=== PATIENT | male | born 1985 | race Caucasian/White ===

== ENCOUNTER 2017-07-05 12:45 | Day surgery (SDC) | payer OTHER ==
[~2017-07-05] VITALS: Ht 185.4 cm; Wt 111.1 kg
[~2017-07-05 12:45] MED LIST: ALPHA LIPOIC A300 MG PO; CIPRO500 MG PO; FLAGYL500 MG PO; LACTULOSE10 GM/15 M PO; NAPROSYN500 MG PO; NORCO 5-325 TA1 EACH PO; PROBIOTIC1 EAC1 PO
--- NOTE | 2017-07-05 13:52 | NUR ---
07/05/17 1352 Mattie Menjivar 1349 - PT ARRIVED TO PACU. MAINTAINING OWN AIRWAY. REPSONDING APPROPRIATLY TO QUESTIONS. OFFICERS PRESENT AT BEDSIDE.
--- NOTE | 2017-07-06 10:03 | OR ---
[facility] [address], [place] [address] Signed DATE OF OPERATION: 07/05/2017 SURGEON: Antonio Blancas MD PREOPERATIVE DIAGNOSIS: Episode of left lower abdominal pain clinically consistent with diverticulitis; CT scan unlikely for diverticular change. POSTOPERATIVE DIAGNOSES: 1. No evidence of diverticulosis of the sigmoid. 2. Sessile polyp of the right colon (1 cm) excised. PROCEDURE: Total colonoscopy to cecum with cold morcellation polypectomy x1. ANESTHESIA: Intravenous sedation, fentanyl 150 mcg, Versed 10 mg. INDICATION: This 31-year-old white man is a prisoner at [facility] and a patient of Fidel Hein MD. He had an episode of left lower abdominal pain that was suggestive of acute diverticulitis. He was treated with antibiotics. His symptoms did improve. A CT scan was performed at that time, which did not clearly show diverticulitis or diverticula. His clinical history was highly suggestive of it, however. It is notable he has 2 family members with colon cancer including an uncle and a cousin. He is admitted at this time to undergo colonoscopy to assess the source of his left lower abdominal pain which persists. It is notable that a low-fiber diet in preparation for colonoscopy has been markedly helpful to him as regard to his left lower abdominal pain complaint. He understands the risks of bleeding, infection, and perforation related to colonoscopy and wished to proceed. FINDINGS: The prep was excellent. Complete colonoscopy was undertaken to the cecum. There was a polyp of the right colon, which was excised, which was less than a centimeter in size. The remaining colon was normal including the sigmoid and left colon that showed no evidence of diverticulosis nor sign of neoplasm, colitis, or other problem. PROCEDURE IN DETAIL: The patient was brought to the endoscopy suite and placed in a lateral decubitus position, given intravenous sedation to the point of slurred speech and nystagmus. Electronically Signed By: ANTONIO BLANCAS MD 07/06/17 1003 PATIENT NAME: FIDEL VILLALBA OPERATIVE REPORT DATE OF : 83 PHYSICIAN: ANTONIO BLANCAS MD REPORT #: [id number] REPORT IS CONFIDENTIAL AND NOT TO BE RELEASED WITHOUT AUTHORIZATION [facility] [address], [place] [address] Signed Digital rectal examination was normal. An Olympus video colonoscope was passed in the rectum and manipulated throughout the colon ultimately intubating the cecum itself. The ileocecal valve appeared normal. The scope was withdrawn from that point and examination throughout undertaken. In the mid ascending colon, there was a sessile polyp that was adenomatous in its clinical appearance. It was excised with cold morcellation technique with a single pass. Further withdrawal of the scope showed no sign of other abnormality, specifically no colitis or diverticular formation including the sigmoid and left colon. Retroflexed view of the rectum was normal. Scope was removed, and the patient was taken to the recovery room in good condition. CONCLUDING DIAGNOSES: 1. Polyp of the right colon, not accounting for symptoms. 2. No evidence of diverticular change of sigmoid or left colon. PLAN: Since a low-fiber diet has been locally helpful to him recently, I would advocate a low-fiber diet for the next 4 to 6 weeks. I will see [facility] back in the [facility] in that time frame. He may have an irritable bowel syndrome problem, but certainly does not appear to have a diverticular problem. As regard to repeat colonoscopy, we would consider repeat in 3 years or sooner if clinically indicated. MD ROSEMARY Alexis/MODL /[id number] cc: CHERY Hein MD Electronically Signed By: ANTONIO BLANCAS MD 07/06/17 1003 PATIENT NAME: FIDEL VILLALBA OPERATIVE REPORT DATE OF : 83 PHYSICIAN: ANTONIO BLANCAS MD REPORT #: [id number] REPORT IS CONFIDENTIAL AND NOT TO BE RELEASED WITHOUT AUTHORIZATION
== END 2017-07-05 14:25 | disposition home or self-care (01) ==
LOC: DS 12:45 → OPS 12:45 → DS 13:00 → OPS 14:25
PROVIDERS: Surgery
PROC: 0DBK8ZX Excision of Ascending Colon, Via Natural or Artificial Opening Endoscopic, Diagnostic (ICD-10-PCS; principal; 2017-07-05 13:00)
DX: K63.5 Polyp of colon (principal); Z91.040 Latex allergy status; Z88.8 Allergy status to other drugs, medicaments and biological substances; Z90.89 Acquired absence of other organs; Z98.890 Other specified postprocedural states; Z80.0 Family history of malignant neoplasm of digestive organs
CPT/HCPCS: 99153; G0500; J2250; J3010; J7120

== ENCOUNTER 2017-10-18 06:55 | Day surgery (SDC) | payer OTHER ==
[~2017-10-18] VITALS: Ht 185.4 cm; Wt 111.1 kg
[2017-10-18] MEDS ORDERED: ULTRAM50 MG PO ×2 (07:20→11:35)
[2017-10-18] MEDS ORDERED: NAPROSYN500 MG PO (07:21)
--- NOTE | 2017-10-18 10:37 | NUR ---
10/18/17 1037 Vidya Lovelace 1027 PATIENT SLEEPING, DOES NOT RESPOND TO VERBAL OR TACTILE STIMULI. RESP EVEN AND UNLABORED. ORAL AIRWAY IN PLACE. MASK AT 10 LITERS, DECREASED TO 6 LITERS. 1030 PATIENT OPENS EYES TO VERBAL STIMULI, DOES NOT FOLLOW COMMANDS. RESP EVEN AND UNLABORED, ORAL AIRWAY REMOVED. MASK OFF. SATS 96% ROOM AIR. PATIENT BACK TO SLEEP.
--- NOTE | 2017-10-18 11:08 | NUR ---
ICED WATER AND COFFEE GIVEN. [facility] OFFICERS @ BS.
--- NOTE | 2017-10-18 12:28 | NUR ---
LE 1215: PT UP TO BR W/OFFICER STANDBY. PT AMBULATES WELL AND VOIDS AND REQ DC HOME. VERBAL DC INSTRUCTIONS GIVEN AND PATIENT VERBALIZES UNDERSTANDING. CALL REPORT GIVEN TO CAMILO RN AT [facility] AND HER QUESTIONS ARE ANSWERED.
--- NOTE | 2017-10-19 09:45 | OR ---
[facility] [address] [place], [place] [address] Signed DATE OF OPERATION: 10/18/2017 SURGEON: Raghavendra Kirk MD PREOPERATIVE DIAGNOSIS: Displaced fracture, 5th metacarpal left hand. POSTOPERATIVE DIAGNOSIS: Same. PROCEDURE: Open reduction and internal fixation. ANESTHESIA: General. SPECIMENS AND COMPLICATIONS: There were no specimens or complications. TOURNIQUET TIME: About 35 minutes. WHAT WAS DONE: The patient was taken to the operating room. After anesthesia was induced and the airway secured, the patient is left upper extremity was positioned prepped and draped in a routine sterile fashion. The arm was exsanguinated with an Esmarch bandage. Pneumatic tourniquet was inflated to 250 mmHg pressure. A dorsal incision was made along the 5th ray. This was parallel to and by about 2-1/2 cm from a previous dorsal incision. The fixed mother metacarpal fractures. Skin was divided sharply. Subcutaneous tissue was bluntly spread. The extensor tendon was gently retracted out of the way. Fracture site was identified and manipulatively reduced. We then secured it with a 2 mm six hole plate. AP, lateral, and oblique fluoroscopy confirmed a good reduction, good alignment, and good position. The wound was gently irrigated, closed in standard fashion, and sterile dressings applied. The patient was awakened, taken to the recovery room where he arrived in stable condition. Counts were correct and antibiotic protocols were followed. Electronically Signed By: RAGHAVENDRA KIRK MD 10/19/17 0945 PATIENT NAME: TOY VILLALBA OPERATIVE REPORT DATE OF : 83 REPORT #: [id number] PHYSICIAN: RAGHAVENDRA KIRK MD PCP: TOY MACIEL MD REPORT IS CONFIDENTIAL AND NOT TO BE RELEASED WITHOUT AUTHORIZATION [address] [address] Signed Raghavendra Kirk MD WFB/MODL /[id number] Copies: ~ Electronically Signed By: RAGHAVENDRA KIRK MD 10/19/17 0945 PATIENT NAME: TOY VILLALBA OPERATIVE REPORT DATE OF : 83 REPORT #: [id number] PHYSICIAN: RAGHAVENDRA KIRK MD PCP: TOY MACIEL MD REPORT IS CONFIDENTIAL AND NOT TO BE RELEASED WITHOUT AUTHORIZATION
== END 2017-10-18 12:25 | disposition home or self-care (01) ==
LOC: DS 06:55
PROVIDERS: Orthopaedic Surgery
PROC: 0PSQ04Z Reposition Left Metacarpal with Internal Fixation Device, Open Approach (ICD-10-PCS; principal; 2017-10-18 09:15)
DX: S62.327A Displaced fracture of shaft of fifth metacarpal bone, left hand, initial encounter for closed fracture (principal); K21.9 Gastro-esophageal reflux disease without esophagitis; X58.XXXA Exposure to other specified factors, initial encounter
CPT/HCPCS: 01830; 64417; 73120; 76942; C1713; J0690; J0735; J1100; J1885; J2250; J2405; J2704; J2765; J3010; J7120

== ENCOUNTER 2019-06-19 05:49 | Day surgery (SDC) | payer OTHER ==
[~2019-06-19] VITALS: Ht 188 cm; Wt 104.3 kg
[~2019-06-19 05:49] MED LIST changes: +ALPHA LIPOIC A300 MG; +DOCUSATE SODIU100 MG PO; +GOLYTELY PACKE1 EACH PO; +HYDROCORTISONE28 GM TOP; +IBUPROFEN200 M1 PO; +LINZESS290 MCG PO; +MAALOX MAXIMUM355 ML PO; +MILK OF MA400 MG/5 M PO; +OMEPRAZOLE20 MG PO; +REGULOID426 GM; +ULTRAM50 MG PO
[2019-06-19] MEDS ORDERED: CAPZASIN-HP42.5 GM TOP (05:58)
[2019-06-19] MEDS ORDERED: MIRALAX119 GM PO (05:59)
[2019-06-19] MEDS ORDERED: OMEPRAZOLE20 MG PO (05:59)
--- NOTE | 2019-06-19 09:15 | NUR ---
06/19/19 0915 Sheets,Ronda 0837 PT ARRIVED TO PACU ASLEEP AND SMALL AMOUNT OF SHADOWING THROUGH MERISSA WRAP. VSS. RESP EVEN AND UNLABORED ON 6L VIA MASK. 0845 DRAINAGE NOTED COMING OUT END OF DRESSING, MD NOTIFIED. SECOND RN AT BEDSIDE. 4X4 GAUZE PLACED AT END OF DRESSING FOR DRAINAGE. 0847 TANK TRUCK OPERATOR LANCY AT BEDSIDE AND SURGICAL SITE REDRESSED WITH 4X4 GAUZE ADAPTIC, FLUFFS, CAST PADDING AND MERISSA. ICE APPILED AND HAND ELEVATED ON PILLOW. 0850 O2 MASK REMOVED. PT REPORTS 8/10 PAIN. HOB INCREASED. 0855 PAIN MEDICATION GIVEN PER EMAR. 0900 PT ASLEEP OFF AND ON AND PT REPORTS PAIN 12/04. 0903 APNEA PERIOD NOTED WHILE ASLEEP. RN WAKES AND ENCOURAES DEEP BREATHING AND COUGHING. 0913 O2 SAT DECREASED TO 88%, RN ENCOURGES DEEP BREAHTING. O2 SAT INCREASED TO 100%.
--- NOTE | 2019-06-19 11:00 | NUR ---
1000) REDRESS LEFT HAND AND PLACED A NEW SPLINT ON IT PER MD. CMS + AFTER CHANGE. CHANGED DUE TO BEING SOILED WITH BLOOD. 0 BLEEDING NOTED AT THIS TIME.
--- NOTE | 2019-06-20 12:59 | OR ---
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 PROCEDURE: Removal of broken hardware, metacarpal osteotomy, local bone graft and refixation with a 2.4 mm plate. ANESTHESIA: General. SPECIMENS: There were no specimens. TOURNIQUET: Tourniquet was a little bit under an hour. WHAT WAS DONE: The patient was taken to the operating room. After anesthesia was induced and airway secured, the patient was positioned, prepped and draped in a routine sterile fashion. Left upper extremity was exsanguinated with an Esmarch bandage. Pneumatic tourniquet was inflated to 250 mmHg pressure. A time-out was held and everything was confirmed. We then used his old scar as a guide and made a dorsal incision in the interval between the 4th and 5th metacarpal. Skin was divided sharply. Subcutaneous tissue was bluntly spread. The extensor tendon was identified and gently retracted. We then exposed the metacarpal. Interestingly, even though the plate had fractured, the metacarpal was subtly healed but with fairly significant apex dorsal angulation. Therefore, after removing the screws and the broken plate, we did a small osteotomy, dorsal closing wedge. We then reapproximated and secured it with a 2.4 mm plate. The wound was gently irrigated. Position was checked fluoroscopically and seemed to be excellent. The wound was gently irrigated and closed in a standard fashion. Sterile dressings were applied and he was placed in a volar splint. He was awakened, taken to recovery room where he arrived in stable condition. Electronically Signed By: KIAN BUSH MD 06/20/19 1259 PATIENT NAME: VILLALBA,TOYLISA LIGHT OPERATIVE REPORT DATE OF : 83 REPORT #: [id number] PHYSICIAN: KIAN BUSH MD PCP: TOY MACIEL MD REPORT IS CONFIDENTIAL AND NOT TO BE RELEASED WITHOUT AUTHORIZATION [address] [place], [place] [address] Signed Kian Bush MD WFB/MODL /[id number] Copies: ~ Electronically Signed By: KIAN BUSH MD 06/20/19 1259 PATIENT NAME: VILLALBATOY OPERATIVE REPORT DATE OF : 83 REPORT #: [id number] PHYSICIAN: KIAN BUSH MD PCP: TOY MACIEL MD REPORT IS CONFIDENTIAL AND NOT TO BE RELEASED WITHOUT AUTHORIZATION
== END 2019-06-19 10:45 | disposition home or self-care (01) ==
LOC: OPS 05:49 → DS 05:49 → OPS 06:45 → DS 06:45 → OPS 10:45
PROVIDERS: Orthopaedic Surgery
PROC: 0PSQ04Z Reposition Left Metacarpal with Internal Fixation Device, Open Approach (ICD-10-PCS; principal; 2019-06-19 06:45)
DX: T84.210A Breakdown (mechanical) of internal fixation device of bones of hand and fingers, initial encounter (principal); S62.30 Unspecified fracture of other metacarpal bone; X58.XXXD Exposure to other specified factors, subsequent encounter
CPT/HCPCS: 73120; J0690; J1100; J1885; J2250; J2704; J2795; J3010; J7121